=== PATIENT | male | born 1985 | race Caucasian/White ===

== ENCOUNTER 2020-05-30 13:50 | Emergency (ER) | payer BC ==
[2020-05-30 13:58] VITALS: TEMP 99.9
[2020-05-30] MEDS ORDERED: ACETAMINOPHEN TAB 325 MG TAB PO STA (14:59)
[2020-05-30] MEDS ORDERED: ALBUTEROL HFA INHALER INHALATION STA (14:59)
--- NOTE | 2020-05-30 15:21 | ED ---
SOB HPI - General Chief Complaint: Shortness of Breath Stated Complaint: NELL Time Seen by Provider: 05/30/20 13:55 Source: patient Mode of arrival: ambulatory Limitations: no limitations - History of Present Illness Initial Comments: Patient is a 35-year-old male with past history of hypertension, hyperlipidemia who presents emergency room with reported shortness of breath. States that he began having a cough on the and got tested for covert as he has a lot of coworkers were testing positive. States he was positive at that time. He has been quarantined at home. States that he's had some diarrhea, body aches and fevers. He has been taking Advil. He does have a pulse ox at home. States that it has always been in the high 90s. Today the patient felt as if it was hard to take a deep breath. Reports a bronchospastic cough without sputum production. No vomiting. Denies any chest pain. No calf pain or swelling. Patient does not currently smoke. No COPD or asthma history. No alleviating, precipitating or modifying factors - Related Data Home Medications Medication Instructions Recorded Confirmed Allopurinol [Zyloprim] 300 mg PO DAILY 05/30/20 05/30/20 Atorvastatin Calcium [Lipitor] 80 mg PO DAILY 05/30/20 05/30/20 Indomethacin [Indocin] 25 mg PO TID PRN 05/30/20 05/30/20 [place]-3 Fatty Acids/Fish Oil [Fish 1 cap PO DAILY 05/30/20 05/30/20 Oil 1,000 mg Softgel] Vitamin E 400 unit PO DAILY 05/30/20 05/30/20 amLODIPine [Norvasc] 5 mg PO DAILY 05/30/20 05/30/20 lisinopriL [Zestril] 40 mg PO DAILY 05/30/20 05/30/20 metFORMIN HCL 250 mg PO BID 05/30/20 05/30/20 Allergies Allergy/AdvReac Type Severity Reaction Status Date / Time amoxicillin Allergy Itching Verified 05/30/20 14:37 Review of Systems ROS Statement: Those systems with pertinent positive or pertinent negative responses have been documented in the HPI. ROS Other: All systems not noted in ROS Statement are negative. Past Medical History Past Medical History: Hyperlipidemia, Hypertension Additional Past Medical History / Comment(s): high liver enzymes, gout, COVID 19 History of Any Multi-Drug Resistant Organisms: None Reported Date of last positivie culture/infection: 2003 MDRO Source:: STAPH thumb and chest Past Surgical History: No Surgical Hx Reported Past Psychological History: Depression Smoking Status: Current some day smoker Past Alcohol Use History: Occasional Past Drug Use History: Marijuana General Exam Limitations: no limitations Course Vital Signs 05/30/20 05/30/20 05/30/20 13:53 14:06 16:44 Temperature 99.9 F H Pulse Rate 88 87 Respiratory 18 20 18 Rate Blood Pressure 142/87 127/77 O2 Sat by Pulse 99 98 Oximetry Medical Decision Making - Medical Decision Making Upon arrival the patient is placed into room 3. A thorough history and physical exam was performed. Patient does not have increased worker breathing. Peripheral IV is established. Patient is given a albuterol inhaler. Laboratory studies were conducted and the patient went for chest x-ray. Laboratory studies are unremarkable. Chest x-ray is negative for any acute process. The patient continues to saturate around 98% without any subtle mental oxygen. At this time patient was discharged home with the albuterol inhaler. She is to use it every 4 hours for bronchospasm. Recommend that he take antipyretics for pain and fever. Patient is to continue to quarantine. Return to the emergency room for any worsening symptoms. Patient remained in stable condition and was discharged home - Lab Data Result diagrams: 05/30/20 15:34 05/30/20 15:34 Lab Results 05/30/20 05/30/20 05/30/20 Range/Units 15:34 15:34 15:34 WBC 4.9 (3.8-10.6) k/uL RBC 5.21 (4.30-5.90) m/uL Hgb 16.1 (13.0-17.5) gm/dL Hct 46.9 (39.0-53.0) % MCV 90.1 (80.0-100.0) fL MCH 30.8 (25.0-35.0) pg MCHC 34.2 (31.0-37.0) g/dL RDW 12.5 (11.5-15.5) % Plt Count 147 L (150-450) k/uL Neutrophils % 68 % Lymphocytes % 19 % Monocytes % 9 % Eosinophils % 3 % Basophils % 1 % Neutrophils # 3.3 (1.3-7.7) k/uL Lymphocytes # 0.9 L (1.0-4.8) k/uL Monocytes # 0.4 (0-1.0) k/uL Eosinophils # 0.2 (0-0.7) k/uL Basophils # 0.0 (0-0.2) k/uL PT 10.2 (9.0-12.0) sec INR 1.0 (<1.2) APTT 25.9 (22.0-30.0) sec D-Dimer 0.19 (<0.60) mg/L FEU Sodium 137 (137-145) mmol/L Potassium 4.2 (3.5-5.1) mmol/L Chloride 104 (98-107) mmol/L Carbon Dioxide 25 (22-30) mmol/L Anion Gap 8 mmol/L BUN 14 (9-20) mg/dL Creatinine 0.81 (0.66-1.25) mg/dL Est GFR (CKD-EPI)AfAm >90 (>60 ml/min/1.73 sqM) Est GFR (CKD-EPI)NonAf >90 (>60 ml/min/1.73 sqM) Glucose 82 (74-99) mg/dL Plasma Lactic Acid Nick (0.7-2.0) mmol/L Calcium 9.1 (8.4-10.2) mg/dL Magnesium 1.7 (1.6-2.3) mg/dL Total Bilirubin 0.6 (0.2-1.3) mg/dL AST 93 H (17-59) U/L ALT 167 H (4-49) U/L Alkaline Phosphatase 105 (38-126) U/L Lactate Dehydrogenase 440 (313-618) U/L C-Reactive Protein 11.6 H (<10.0) mg/L Total Protein 7.0 (6.3-8.2) g/dL Albumin 4.2 (3.5-5.0) g/dL Influenza Type A RNA (Not Detectd) Influenza Type B (PCR) (Not Detectd) 05/30/20 05/30/20 Range/Units 15:34 16:48 WBC (3.8-10.6) k/uL RBC (4.30-5.90) m/uL Hgb (13.0-17.5) gm/dL Hct (39.0-53.0) % MCV (80.0-100.0) fL MCH (25.0-35.0) pg MCHC (31.0-37.0) g/dL RDW (11.5-15.5) % Plt Count (150-450) k/uL Neutrophils % % Lymphocytes % % Monocytes % % Eosinophils % % Basophils % % Neutrophils # (1.3-7.7) k/uL Lymphocytes # (1.0-4.8) k/uL Monocytes # (0-1.0) k/uL Eosinophils # (0-0.7) k/uL Basophils # (0-0.2) k/uL PT (9.0-12.0) sec INR (<1.2) APTT (22.0-30.0) sec D-Dimer (<0.60) mg/L FEU Sodium (137-145) mmol/L Potassium (3.5-5.1) mmol/L Chloride (98-107) mmol/L Carbon Dioxide (22-30) mmol/L Anion Gap mmol/L BUN (9-20) mg/dL Creatinine (0.66-1.25) mg/dL Est GFR (CKD-EPI)AfAm (>60 ml/min/1.73 sqM) Est GFR (CKD-EPI)NonAf (>60 ml/min/1.73 sqM) Glucose (74-99) mg/dL Plasma Lactic Acid Nick 1.1 (0.7-2.0) mmol/L Calcium (8.4-10.2) mg/dL Magnesium (1.6-2.3) mg/dL Total Bilirubin (0.2-1.3) mg/dL AST (17-59) U/L ALT (4-49) U/L Alkaline Phosphatase (38-126) U/L Lactate Dehydrogenase (313-618) U/L C-Reactive Protein (<10.0) mg/L Total Protein (6.3-8.2) g/dL Albumin (3.5-5.0) g/dL Influenza Type A RNA Not Detected (Not Detectd) Influenza Type B (PCR) Not Detected (Not Detectd) - EKG Data EKG Comments: EKG demonstrates a normal sinus rhythm with a ventricular rate of 83. [place] interval 180. QRS 88. QTC of 408. Q-wave in lead 3. No acute ST segment elevations or depressions Disposition Clinical Impression: COVID-19, Acute respiratory insufficiency Disposition: HOME SELF-CARE Condition: Stable Instructions (If sedation given, give patient instructions): Bronchospasm (ED) Additional Instructions: Please follow-up with your primary care doctor. Quarantine yourself. Use the inhaler as needed. Return to the emergency room for any new or worsening symptoms Is patient prescribed a controlled substance at d/c from ED?: No Referrals: Abundio Smith MD [Primary Care Provider] - 1-2 days Time of Disposition: 17:07
[2020-05-30 15:47] LABS: Basophils % (A) 1 %; Eosinophils # (A) 0.2 k/uL (0-0.7); Eosinophils % (A) 3 %; HCT 46.9 % (39.0-53.0); HGB 16.1 gm/dL (13.0-17.5); Lymphocytes # (A) 0.9 k/uL (1.0-4.8); Lymphocytes % (A) 19 %; MCH 30.8 pg (25.0-35.0); MCHC 34.2 g/dL (31.0-37.0); MCV 90.1 fL (80.0-100.0); Mean Platelet Volume 7.3; Monocytes # (A) 0.4 k/uL (0-1.0); Monocytes % (A) 9 %; Neutrophils # (A) 3.3 k/uL (1.3-7.7); Neutrophils % (A) 68 %; Platelet Count 147 k/uL (150-450); RBC 5.21 m/uL (4.30-5.90); RDW 12.5 % (11.5-15.5); WBC 4.9 k/uL (3.8-10.6)
--- NOTE | 2020-05-30 15:47 | XR ---
EXAMINATION TYPE: XR chest 1V portable DATE OF EXAM: 05/30/2020 COMPARISON: NONE HISTORY: Suspected Covid 19 pneumonia, shortness of breath TECHNIQUE: Single frontal view of the chest is obtained. FINDINGS: There is elevation of the right hemidiaphragm. There is no focal air space opacity, pleura l effusion, or pneumothorax seen. The cardiac silhouette size is within normal limits. The osseous structures are intact. IMPRESSION: No acute process.
[2020-05-30 15:56] LABS: ALT 167 U/L (4-49); AST 93 U/L (17-59); African American GFR (CKD) >90 (>60 ml/min/1.73 sqM); Albumin 4.2 g/dL (3.5-5.0); Alkaline Phosphatase 105 U/L (38-126); Anion Gap 8 mmol/L; Blood Urea Nitrogen 14 mg/dL (9-20); C Reactive Protein 11.6 mg/L (<10.0); Calcium 9.1 mg/dL (8.4-10.2); Carbon Dioxide 25 mmol/L (22-30); Chloride 104 mmol/L (98-107); Glucose 82 mg/dL (74-99); LDH 440 U/L (313-618); Magnesium 1.7 mg/dL (1.6-2.3); Non-African American GFR(CKD) >90 (>60 ml/min/1.73 sqM); Potassium 4.2 mmol/L (3.5-5.1); Sodium 137 mmol/L (137-145); Total Bilirubin 0.6 mg/dL (0.2-1.3)
[2020-05-30 15:57] LABS: D-Dimer 0.19 mg/L FEU (<0.60); Partial Thromboplastin Time 25.9 sec (22.0-30.0); Prothrombin Time 10.2 sec (9.0-12.0)
[2020-05-30 16:45] VITALS: BP 127/77; PULSE 87; RESP 18
[2020-05-31 03:31] LABS: Ferritin 344.8 ng/mL (22.0-322.0)
== END 2020-05-30 17:19 | disposition home or self-care (01) ==
LOC: EC 13:50
DX: U07.1 COVID-19 (principal); R06.89 Other abnormalities of breathing; E78.5 Hyperlipidemia, unspecified; I10 Essential (primary) hypertension; F17.200 Nicotine dependence, unspecified, uncomplicated; Z79.899 Other long term (current) drug therapy; Z79.84 Long term (current) use of oral hypoglycemic drugs; Z88.0 Allergy status to penicillin
CPT/HCPCS: 36415; 71045; 80053; 82728; 83605; 83615; 83735; 84145; 85025; 85379; 85610; 85730; 86140; 87502; 93005; 94640; 99285

== ENCOUNTER 2020-09-23 19:31 | Observation (INO) | payer BC ==
[2020-09-23 21:04] LABS: Basophils # (A) 0.1 k/uL (0-0.2); Basophils % (A) 1 %; Eosinophils # (A) 0.2 k/uL (0-0.7); Eosinophils % (A) 3 %; HCT 48.4 % (39.0-53.0); HGB 16.4 gm/dL (13.0-17.5); Lymphocytes # (A) 3.2 k/uL (1.0-4.8); Lymphocytes % (A) 37 %; MCH 29.7 pg (25.0-35.0); MCHC 33.9 g/dL (31.0-37.0); MCV 87.8 fL (80.0-100.0); Mean Platelet Volume 7.6; Monocytes # (A) 0.7 k/uL (0-1.0); Monocytes % (A) 8 %; Neutrophils # (A) 4.4 k/uL (1.3-7.7); Neutrophils % (A) 51 %; Platelet Count 234 k/uL (150-450); RBC 5.51 m/uL (4.30-5.90); RDW 13.2 % (11.5-15.5); WBC 8.6 k/uL (3.8-10.6)
--- NOTE | 2020-09-23 21:08 | XR ---
EXAMINATION TYPE: XR chest 2V DATE OF EXAM: 09/23/2020 COMPARISON: 05/30/2020. HISTORY: Chest pain. TECHNIQUE: Frontal and lateral views of the chest are obtained. FINDINGS: There is no focal air space opacity, pleural effusion, or pneumothorax seen. The cardiac silhouette size is within normal limits. The osseous structures are intact. IMPRESSION: No acute cardiopulmonary process.
[2020-09-23 21:18] LABS: ALT 107 U/L (4-49); AST 51 U/L (17-59); African American GFR (CKD) >90 (>60 ml/min/1.73 sqM); Alkaline Phosphatase 89 U/L (38-126); Anion Gap 9 mmol/L; Blood Urea Nitrogen 16 mg/dL (9-20); Calcium 9.9 mg/dL (8.4-10.2); Carbon Dioxide 30 mmol/L (22-30); Chloride 94 mmol/L (98-107); Glucose 80 mg/dL (74-99); Lipase 171 U/L (23-300); Magnesium 1.6 mg/dL (1.6-2.3); Non-African American GFR(CKD) >90 (>60 ml/min/1.73 sqM); Potassium 4.2 mmol/L (3.5-5.1); Sodium 133 mmol/L (137-145); Total Bilirubin 0.7 mg/dL (0.2-1.3); Total Protein 7.9 g/dL (6.3-8.2)
[2020-09-23 21:24] LABS: D-Dimer <0.17 mg/L FEU (<0.60); Partial Thromboplastin Time 24.5 sec (22.0-30.0); Prothrombin Time 10.6 sec (9.0-12.0)
[2020-09-23] MEDS ORDERED: MORPHINE SULFATE 4 MG/ML SYRINGE IVP STA (22:22)
--- NOTE | 2020-09-23 23:13 | ED ---
Chest Pain HPI - General Chief Complaint: Chest Pain Stated Complaint: chest pain Time Seen by Provider: 09/23/20 19:35 Source: patient Mode of arrival: ambulatory Limitations: no limitations - History of Present Illness Initial Comments: 35-year-old male past medical history of hypertension, hyperlipidemia, metabolic syndrome who presents emergency Department with reported chest pain. Patient describes substernal chest pain which is sharp in nature located over the left side of his chest which radiates into his left arm. Reports to left arm numbn ess. Has associated shortness of breath. Symptoms have been present for 4 days. Denies nausea, vomiting or diaphoresis. No previous history of cardiac disease. Does report a family history of cardiac disease. No fevers or chills. Denies cough. No sick contacts. Had Covid in June. No history of DVT or PE. No lower extremity swelling. Has not taken anything for his pain at home. No other alleviating, precipitating or modifying factors - Related Data Home Medications Medication Instructions Recorded Confirmed Allopurinol [Zyloprim] 300 mg PO DAILY 05/30/20 09/23/20 Atorvastatin Calcium [Lipitor] 80 mg PO HS 05/30/20 09/23/20 [place]-3 Fatty Acids/Fish Oil [Fish 1 cap PO DAILY 05/30/20 09/23/20 Oil 1,000 mg Softgel] Vitamin E 400 unit PO DAILY 05/30/20 09/23/20 amLODIPine [Norvasc] 5 mg PO DAILY 05/30/20 09/23/20 lisinopriL [Zestril] 40 mg PO DAILY 05/30/20 09/23/20 metFORMIN HCL 250 mg PO BID 05/30/20 09/23/20 Aspirin EC [Ecotrin Low Dose] 81 mg PO HS 09/23/20 09/23/20 Clobetasol Propionate [Clobex 1 spray TOPICAL BID 09/23/20 09/23/20 [place] 0.05%] Omeprazole 40 mg PO DAILY 09/23/20 09/23/20 Allergies Allergy/AdvReac Type Severity Reaction Status Date / Time amoxicillin Allergy Itching Verified 09/23/20 22:52 Review of Systems ROS Statement: Those systems with pertinent positive or pertinent negative responses have been documented in the HPI. ROS Other: All systems not noted in ROS Statement are negative. EKG Findings - EKG Comments: EKG Findings:: EKG completed at 1944 demonstrates a normal sinus rhythm with a ventricular rate 78. [place] interval 182. QRS 88. QTC of 392. No acute ST segment elevations or depressions Past Medical History Past Medical History: Hyperlipidemia, Hypertension Additional Past Medical History / Comment(s): high liver enzymes, gout, COVID 19 History of Any Multi-Drug Resistant Organisms: None Reported Date of last positivie culture/infection: 2003 MDRO Source:: STAPH thumb and chest Past Surgical History: No Surgical Hx Reported Past Psychological History: Depression Smoking Status: Former smoker Past Alcohol Use History: Occasional Past Drug Use History: Marijuana - Past Family History Father Family Medical History: Hyperlipidemia, Hypertension Mother Family Medical History: Hyperlipidemia, Hypertension General Exam Limitations: no limitations General appearance: alert, in no apparent distress Head exam: Present: atraumatic, normocephalic, normal inspection Eye exam: Present: normal appearance, PERRL, EOMI. Absent: scleral icterus, conjunctival injection, periorbital swelling ENT exam: Present: normal exam, mucous membranes moist Neck exam: Present: normal inspection. Absent: tenderness, meningismus, lymphadenopathy Respiratory exam: Present: normal lung sounds bilaterally. Absent: respiratory distress, wheezes, rales, rhonchi, stridor Cardiovascular Exam: Present: regular rate, normal rhythm, normal heart sounds. Absent: systolic murmur, diastolic murmur, rubs, gallop, clicks GI/Abdominal exam: Present: soft, normal bowel sounds. Absent: distended, tenderness, guarding, rebound, rigid Extremities exam: Present: normal inspection, full ROM, normal capillary refill. Absent: tenderness, pedal edema, joint swelling, calf tenderness Back exam: Present: normal inspection Neurological exam: Present: alert, oriented X3, CN II-XII intact Psychiatric exam: Present: normal affect, normal mood Skin exam: Present: warm, dry, intact, normal color. 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 A thorough history and physical exam was performed. 12-lead EKG is performed. Patient hooked up to continuous pulse ox and cardiac monitoring. Lab studies conducted and patient is sent for chest x-ray. Results are discussed with the patient. Patient does have acute onset of worsening pain while speaking to him. Requesting something for pain at this time and therefore is given 4 mg of morphine. Aspirin 324 and nitro ointment also administered. I spoke with Dr. Gavin who agreed to admit the patient. We'll trend his troponins. Patient awaiting a bed on the floor Disposition Clinical Impression: Chest pain Disposition: ADMITTED IP TO THIS HOSP Condition: Stable Is patient prescribed a controlled substance at d/c from ED?: No Decision to Admit Reason: Admit from EC Decision Date: 09/23/20 Decision Time: 23:13
[2020-09-23] MEDS ORDERED: NALOXONE 0.4 MG/ML 1 ML VIAL IV PRN (23:14)
[2020-09-23] MEDS ORDERED: ASPIRIN 81 MG PO STA (23:20)
[2020-09-23] MEDS ORDERED: NITROGLYCERIN OINT 1 INCH/GM PACKET TOPICAL STA (23:20)
[2020-09-24] MEDS ORDERED: ACETAMINOPHEN TAB 325 MG TAB PO STA (01:01)
--- NOTE | 2020-09-24 03:50 | P.HPIM ---
History of Present Illness H&P Date: 09/24/20 Patient is a 35-year-old male with a PMH of hypertension and hyperlipidemia who presented to the emergency room with complaints of 5 days of intermittent chest pain. The patient notes that his discomfort is substernal, 7 out of 10, sharp in nature, nonpleuritic, radiating to the left arm, and intermittent, lasting for several minutes. The pain occurs at rest and at exertion with no clear inciting or alleviating factors. Patient reports that he has never had such symptoms the past. He denied associated shortness of breath, nausea, vomiting, diaphoresis, palpitations, or dizziness. In the emergency room, an EKG revealed normal sinus rhythm with no ischemic ST/T-wave changes noted as reviewed by me. Chest x-ray was unremarkable. Laboratory evaluation was remarkable for a sodium of 133, chloride 94, ALT 107, troponin less than 0.012. Review of Systems Pertinent positives and negatives as discussed in HPI, a complete review of systems was performed and all other systems are negative. Past Medical History Past Medical History: Hyperlipidemia, Hypertension Additional Past Medical History / Comment(s): high liver enzymes, gout, COVID 19 History of Any Multi-Drug Resistant Organisms: None Reported Date of last positivie culture/infection: 2003 MDRO Source:: STAPH thumb and chest Past Surgical History: No Surgical Hx Reported Past Psychological History: Depression Smoking Status: Former smoker Past Alcohol Use History: Occasional Past Drug Use History: Marijuana Medications and Allergies Home Medications Medication Instructions Recorded Confirmed Type Allopurinol [Zyloprim] 300 mg PO DAILY 05/30/20 09/23/20 History Atorvastatin Calcium [Lipitor] 80 mg PO HS 05/30/20 09/23/20 History [employer]-3 Fatty Acids/Fish Oil [Fish 1 cap PO DAILY 05/30/20 09/23/20 History Oil 1,000 mg Softgel] Vitamin E 400 unit PO DAILY 05/30/20 09/23/20 History amLODIPine [Norvasc] 5 mg PO DAILY 05/30/20 09/23/20 History lisinopriL [Zestril] 40 mg PO DAILY 05/30/20 09/23/20 History metFORMIN HCL 250 mg PO BID 05/30/20 09/23/20 History Aspirin EC [Ecotrin Low Dose] 81 mg PO HS 09/23/20 09/23/20 History Clobetasol Propionate [Clobex 1 spray TOPICAL BID 09/23/20 09/23/20 History [place] 0.05%] Omeprazole 40 mg PO DAILY 09/23/20 09/23/20 History Allergies Allergy/AdvReac Type Severity Reaction Status Date / Time amoxicillin Allergy Itching Verified 09/23/20 22:52 Physical Exam Vitals: Vital Signs Temp Pulse Resp BP Pulse Ox 09/24/20 02:00 70 20 127/77 97 09/24/20 01:00 78 18 143/83 97 09/23/20 23:00 70 22 144/84 97 09/23/20 22:00 73 24 145/79 98 09/23/20 19:36 98.2 F 89 18 146/86 97 Intake and Output 09/23/20 09/23/20 09/24/20 14:59 22:59 06:59 Other: Weight 108.862 kg General: non toxic, no distress, appears at stated age, obese Derm: no unusual rashes/lesions no unusual ecchymoses, warm, dry Head: atraumatic, normocephalic, symmetric Eyes: EOMI, no lid lag, anicteric sclera, pupils equal round reactive to light ENT: Nose and ears atraumatic, no thrush, no pharyngeal erythema Neck: No thyromegaly, no cervical lymphadenopathy, trachea midline, supple Mouth: no lip lesion, mucus membranes moist Cardiovascular: S1S2 reg, no murmur, positive posterior tibial pulse bilateral, no edema, capillary refill less than 2 seconds, no chest wall tenderness on palpation Lungs: CTA bilateral, no rhonchi, no rales , no accessory muscle use Abdominal: soft, nontender to palpation, no guarding, no appreciable organomegaly, normal bowel sounds Ext: no gross muscle atrophy, muscle strength 5 out of 5 in all 4 extremities grossly, no contractures, Neuro: CN II-XI grossly intact, light touch intact all 4 extremities, finger to nose within normal limits, Psych: Alert, oriented, appropriate affect Results CBC & Chem 7: 09/23/20 20:53 09/23/20 20:53 Labs: Abnormal Lab Results - Last 24 Hours (Table) 09/23/20 Range/Units 20:53 Sodium 133 L (137-145) mmol/L Chloride 94 L (98-107) mmol/L ALT 107 H (4-49) U/L Assessment and Plan Plan: chest pain, rule out ACS -Cardiology consult -Trend troponin -Cardiac monitoring -Continue with aspirin Mild hyponatremia -Monitor for now Chronic conditions: Hypertension, hyperlipidemia -Continue home medications DVT prophylaxis -IPCDs The patient is admitted with an anticipated less than 2 midnight stay for evaluation of chest pain CODE STATUS: Full Code Discussed with: Patient Anticipated discharge date: in am Anticipated discharge place: Home A total of 35 minutes was spent on the care of this complex patient more than 50% of the time was spent in counseling and care coordination.
[2020-09-24] MEDS ORDERED: lisinopriL 20 MG TAB PO SCH (11:30)
[2020-09-24] MEDS ORDERED: amLODIPine 10 MG TAB PO SCH (11:30)
--- NOTE | 2020-09-24 12:29 | P.CRDCN ---
History of Present Illness History of present illness: HISTORY OF PRESENTING ILLNESS This is a pleasant 35-year-old male past medical history significant for hypertension, dyslipidemia and daily alcohol intake. He denies history of diabetes mellitus however is on metformin for his primary care physician for fatty liver. He does not follow in the office with a psychology professor. We have been asked to see in consultation for chest pain. States for the previous 5 days he has been experiencing intermittent episodes of tightness in his chest. There is no radiation to the arm, back, neck or jaw. He denies associated shortness of breath, dizziness, palpitations, nausea, vomiting or diaphoresis. He checked his blood pressure yesterday when he had an episode of chest pain and it was 165/111. He states at baseline his blood pressure typically runs between 140- 150 systolic. DIAGNOSTICS EKG reveals sinus mechanism with no acute ST or T wave abnormalities noted. Telemetry tracings indicate sinus mechanism. Chest xray negative for an acute cardiopulmonary process. Laboratory reviewed, CBC unremarkable, d-dimer less than 0.17, sodium 133, potassium 4.2, creatinine 1.0, cardiac enzymes negative 3 and magnesium 1.6. Current cardiac medications include aspirin 81 mg daily, lisinopril 40 mg daily, amlodipine 5 mg daily and atorvastatin 80 mg daily. REVIEW OF SYSTEMS At the time of my exam: CONSTITUTIONAL: Denies fever or chills. CARDIOVASCULAR: Denies chest pain, shortness of breath, orthopnea, PND or palpitations. RESPIRATORY: Denies cough. GASTROINTESTINAL: Denies abdominal pain, diarrhea, constipation, nausea or vomi ting. MUSCULOSKELETAL: Denies myalgias. NEUROLOGIC: Denies numbness, tingling, headacbe or weakness. ENDOCRINE: Denies fatigue, weight change, polydipsia or polyurina. GENITOURINARY: Denies burning, hematuria or urgency with micturation. HEMATOLOGIC: Denies history of anemia or bleeding. PHYSICAL EXAMINATION Blood pressure 128/78 heart rate 56 afebrile and maintaining oxygen saturation on room air. CONSTITUTIONAL: No apparent distress. HEENT: Head is normocephalic. Pupils are equal, round. Sclerae anicteric. Mucous membranes of the mouth are moist. No JVD. No carotid bruit. CHEST EXAMINATION: Lungs are clear to auscultation. No chest wall tenderness is noted on palpation or with deep breathing. HEART EXAMINATION: Regular rate and rhythm. S1, S2 heard. No murmurs, gallops or rub. ABDOMEN: Soft, nontender. Positive bowel sounds. EXTREMITIES: 2+ peripheral pulses, no lower extremity edema and no calf tenderness. NEUROLOGIC EXAMINATION: Patient is awake, alert and oriented x3. ASSESSMENT Chest pain Hypertension, uncontrolled Dyslipidemia Questionable history of diabetes mellitus Daily alcohol intake Psoriasis PLAN An acute coronary event has been ruled out. Increase amlodipine to 10 mg daily. Check hemoglobin A1C. Perform stress echocardiogram to assess for stress-induced cardiac ischemia. If stress test is normal he may be discharged from a cardiac perspective, follow-up in the office with Dr. Hanna in 3-4 weeks. Thank you kindly for this consultation. Nurse Practitioner note has been reviewed, I agree with a documented findings and plan of care. Patient was seen and examined. Past Medical History Past Medical History: Hyperlipidemia, Hypertension Additional Past Medical History / Comment(s): high liver enzymes, gout, COVID 19 IN MAY 2020 History of Any Multi-Drug Resistant Organisms: None Reported Date of last positivie culture/infection: 2003 MDRO Source:: STAPH thumb and chest Past Surgical History: No Surgical Hx Reported Additional Past Anesthesia/Blood Transfusion Reaction / Comment(s): GIVEN ANESTHESIA FOR DENTAL PROCEDURES - NO ISSUES. NEVER GIVEN BLOOD PRODUCTS. Past Psychological History: No Psychological Hx Reported Smoking Status: Former smoker Past Alcohol Use History: Daily Additional Past Alcohol Use History / Comment(s): HAS 3 DRINKS A DAY - MAYBE BEER, WINE, BOURBON Past Drug Use History: Marijuana - Past Family History Father Family Medical History: Hyperlipidemia, Hypertension Mother Family Medical History: Hyperlipidemia, Hypertension Medications and Allergies Home Medications Medication Instructions Recorded Confirmed Type Allopurinol [Zyloprim] 300 mg PO DAILY 05/30/20 09/23/20 History Atorvastatin Calcium [Lipitor] 80 mg PO HS 05/30/20 09/23/20 History [place]-3 Fatty Acids/Fish Oil [Fish 1 cap PO DAILY 05/30/20 09/23/20 History Oil 1,000 mg Softgel] Vitamin E 400 unit PO DAILY 05/30/20 09/23/20 History amLODIPine [Norvasc] 5 mg PO DAILY 05/30/20 09/23/20 History lisinopriL [Zestril] 40 mg PO DAILY 05/30/20 09/23/20 History metFORMIN HCL 250 mg PO BID 05/30/20 09/23/20 History Aspirin EC [Ecotrin Low Dose] 81 mg PO HS 09/23/20 09/23/20 History Clobetasol Propionate [Clobex 1 spray TOPICAL BID 09/23/20 09/23/20 History [place] 0.05%] Omeprazole 40 mg PO DAILY 09/23/20 09/23/20 History Allergies Allergy/AdvReac Type Severity Reaction Status Date / Time amoxicillin Allergy Itching Verified 09/23/20 22:52 Physical Exam Vitals: Vital Signs Temp Pulse Pulse Resp BP BP Pulse Ox 09/24/20 09:20 97.6 F 56 L 16 128/78 98 09/24/20 08:58 98.2 F 68 18 114/70 98 09/24/20 07:56 62 09/24/20 06:00 65 20 126/76 97 09/24/20 05:00 60 20 129/79 98 09/24/20 02:00 70 20 127/77 97 09/24/20 01:00 78 18 143/83 97 09/23/20 23:00 70 22 144/84 97 09/23/20 22:00 73 24 145/79 98 09/23/20 19:36 98.2 F 89 18 146/86 97 Intake and Output 09/23/20 09/24/20 09/24/20 22:59 06:59 14:59 Other: Weight 108.862 kg 108.862 kg Results 09/23/20 20:53 09/23/20 20:53 Cardiac Enzymes 09/23/20 09/23/20 09/23/20 Range/Units 20:53 20:53 23:36 AST 51 (17-59) U/L Troponin I <0.012 <0.012 (0.000-0.034) ng/mL 09/24/20 Range/Units 02:49 AST (17-59) U/L Troponin I <0.012 (0.000-0.034) ng/mL Coagulation 09/23/20 Range/Units 20:53 PT 10.6 (9.0-12.0) sec APTT 24.5 (22.0-30.0) sec CBC 09/23/20 Range/Units 20:53 WBC 8.6 (3.8-10.6) k/uL RBC 5.51 (4.30-5.90) m/uL Hgb 16.4 (13.0-17.5) gm/dL Hct 48.4 (39.0-53.0) % Plt Count 234 (150-450) k/uL Comprehensive Metabolic Panel 09/23/20 Range/Units 20:53 Sodium 133 L (137-145) mmol/L Potassium 4.2 (3.5-5.1) mmol/L Chloride 94 L (98-107) mmol/L Carbon Dioxide 30 (22-30) mmol/L BUN 16 (9-20) mg/dL Creatinine 1.00 (0.66-1.25) mg/dL Glucose 80 (74-99) mg/dL Calcium 9.9 (8.4-10.2) mg/dL AST 51 (17-59) U/L ALT 107 H (4-49) U/L Alkaline Phosphatase 89 (38-126) U/L Total Protein 7.9 (6.3-8.2) g/dL Albumin 5.0 (3.5-5.0) g/dL Current Medications Generic Name Dose Route Start Last Admin Trade Name Freq PRN Reason Stop Dose Admin Amlodipine Besylate 10 mg 09/24/20 11:30 Amlodipine 10 Mg Tab PO DAILY [facility] Atorvastatin Calcium 80 mg 09/24/20 21:00 Atorvastatin 80 Mg Tab PO HS [facility] Lisinopril 40 mg 09/24/20 11:30 Lisinopril 20 Mg Tab PO DAILY [facility] Naloxone HCl 0.2 mg 09/23/20 23:14 Naloxone 0.4 Mg/Ml 1 Ml Vial IV Q2M PRN Opioid Reversal Intake and Output 09/23/20 09/24/20 09/24/20 22:59 06:59 14:59 Other: Weight 108.862 kg 108.862 kg Patient Weight 09/25/20 06:59 Weight 108.862 kg 09/23/20 20:53 09/23/20 20:53
[2020-09-24 15:15] VITALS: BP 142/79; PULSE 93; RESP 17; TEMP 97.8
--- NOTE | 2020-09-24 15:35 | P.DS ---
Providers Date of admission: 09/23/20 23:14 Expected date of discharge: 09/24/20 Attending physician: Hannah Gavin MD Consults: 09/23/20 23:14 Consult Physician Urgent Consulting Provider: [facility] Consult Reason/Comments: acute chest pain, possible acs Do you want consulting provider notified?: Yes Primary care physician: Abundio Smith [facility] Course: This is a 35-year-old male with past medical history significant for essential hypertension and hyperlipidemia who presented to the emergency room with chest pain. Patient was evaluated in the ER and placed on observation for further management. Twelve-lead EKG showed no acute ischemic changes. Serial troponin were negative. Chest x-ray was unremarkable for acute findings. Patient was seen and evaluated by cardiology. He underwent cardiac stress testing that was reported negative. He was cleared by cardiology for discharge home. For further details about this observation stay please refer to the electronic chart. Patient Condition at Discharge: Stable Plan - Discharge Summary Discharge Rx Participant: Yes New Discharge Prescriptions: Continue Vitamin E 400 unit PO DAILY Allopurinol [Zyloprim] 300 mg PO DAILY lisinopriL [Zestril] 40 mg PO DAILY Atorvastatin Calcium [Lipitor] 80 mg PO HS [place]-3 Fatty Acids/Fish Oil [Fish Oil 1,000 mg Softgel] 1 cap PO DAILY amLODIPine [Norvasc] 5 mg PO DAILY metFORMIN HCL 250 mg PO BID Aspirin EC [Ecotrin Low Dose] 81 mg PO HS Omeprazole 40 mg PO DAILY Clobetasol Propionate [Clobex [place] 0.05%] 1 spray TOPICAL BID Discharge Medication List Allopurinol [Zyloprim] 300 mg PO DAILY 05/30/20 [History] Atorvastatin Calcium [Lipitor] 80 mg PO HS 05/30/20 [History] [place]-3 Fatty Acids/Fish Oil [Fish Oil 1,000 mg Softgel] 1 cap PO DAILY 05/30/20 [History] Vitamin E 400 unit PO DAILY 05/30/20 [History] amLODIPine [Norvasc] 5 mg PO DAILY 05/30/20 [History] lisinopriL [Zestril] 40 mg PO DAILY 05/30/20 [History] metFORMIN HCL 250 mg PO BID 05/30/20 [History] Aspirin EC [Ecotrin Low Dose] 81 mg PO HS 09/23/20 [History] Clobetasol Propionate [Clobex [place] 0.05%] 1 spray TOPICAL BID 09/23/20 [History] Omeprazole 40 mg PO DAILY 09/23/20 [History] Follow up Appointment(s)/Referral(s): Erwin Riley MD [STAFF PHYSICIAN] - 4 Weeks Abundio Smith MD [Primary Care Provider] - 1-2 days Discharge Disposition: HOME SELF-CARE
[2020-09-24] MEDS ORDERED: ATORVASTATIN 80 MG TAB PO SCH (21:00)
[2020-09-24 22:26] LABS: Hemoglobin A1C 5.9 % (4.0-6.0)
--- NOTE | 2020-09-25 08:51 | ECHOS ---
STRESS ECHOCARDIOGRAM LUMASON: N/A Vial INDICATIONS: Chest pain MEDICATIONS: BASELINE HEART RATE: 91 BASELINE BLOOD PRESSURE: 143/97 MAXIMUM HEART RATE: 174 MAXIMUM BLOOD PRESSURE: 221/70 85% MPHR: 156 100% MPHR: 183 METS: 10.3 MAXIMUM STAGE REACHED: 3 TOTAL EXERCISE TIME: 9:00 Tommy Warren is a 35-year-old male patient who presented with chest discomfort. He has underlying pre-diabetes and hypertension. CLINICAL INFORMATION: Baseline heart rate 91 beats per minute. Baseline blood pressure 143/97 mmHg. Baseline 12-lead ECG showed sinus rhythm with normal cardiac intervals, normal ST segments. Patient exercised on a Norberto protocol for 9 minutes. He had a hypertensive response to exercise. Peak blood pressure was 221/70 mmHg. There was no ECG evidence for ischemia. No arrhythmias noted. Baseline 2D echo images showed normal LV size and systolic function without segmental wall motion abnormalities. Definity contrast was used. At peak exercise there was excellent augmentation of overall LV contractility without development of any wall motion abnormalities. At recovery, regional global LV systolic function remained normal. IMPRESSION: Good exercise capacity on a Norberto protocol. No ECG evidence for ischemia. No echocardiographic evidence for ischemia. Hypertensive response to exercise. MMODL / IJN: [id number] /
== END 2020-09-24 16:22 | disposition home or self-care (01) ==
LOC: EC 19:31 → 6NMEDSUR 23:14
PROVIDERS: ADMIT Internal Medicine; ATTEND Internal Medicine
DX: R07.89 Other chest pain (principal); I10 Essential (primary) hypertension; E78.5 Hyperlipidemia, unspecified; E87.1 Hypo-osmolality and hyponatremia; K76.0 Fatty (change of) liver, not elsewhere classified; L40.9 Psoriasis, unspecified; M10.9 Gout, unspecified; F32.9 Major depressive disorder, single episode, unspecified; R06.02 Shortness of breath; R20.0 Anesthesia of skin; Z79.82 Long term (current) use of aspirin; Z79.84 Long term (current) use of oral hypoglycemic drugs; Z79.899 Other long term (current) drug therapy; Z88.0 Allergy status to penicillin; Z87.891 Personal history of nicotine dependence; Z86.16 Personal history of COVID-19; Z86.19 Personal history of other infectious and parasitic diseases; Z82.49 Family history of ischemic heart disease and other diseases of the circulatory system; Z83.49 Family history of other endocrine, nutritional and metabolic diseases
CPT/HCPCS: 96374; 99285; 36415; 93005; 93351; 85379; 80053; 83690; 83735; 84484 ×2; 85025; 85610; 85730; 83036; 87635; 71046; G0378 ×2; J2270; Q9950

== ENCOUNTER → 2020-10-19 | Outpatient (CLI) | payer BC ==
--- NOTE | 2020-10-19 10:53 | US ---
EXAMINATION TYPE: US liver DATE OF EXAM: 10/19/2020 COMPARISON: None CLINICAL HISTORY: 35-year-old male R74.01 Elevated liver enzymes. TECHNIQUE: Multiple sonographic images of the right upper quadrant are obtained. FINDINGS: EXAM MEASUREMENTS: Liver Length: 13.9 cm Gallbladder Wall: 0.2 cm CBD: 0.4 cm Right Kidney: 11.2 x 6.4 x 6.2 cm Pancreas: obscured by overlying midline bowel gas Liver: Mild increase echogenicity. No focal lesion seen. Gallbladder: wnl Evidence for sonographic Adamson's sign: no CBD: visualized portions wnl, limited by overlying bowel gas Right Kidney: No hydronephrosis. IMPRESSION: At least mild hepatic steatosis. Correlate with LFTs, lipid profile, the patient risk factors. No gal lstones or biliary ductal dilatation.
== END ==
LOC: RADUSWWP 07:30
PROVIDERS: ATTEND Family Medicine
DX: K76.0 Fatty (change of) liver, not elsewhere classified (principal)
CPT/HCPCS: 76705